=== PATIENT | female | born 1960 | race Caucasian/White ===

== ENCOUNTER → 2022-01-03 08:03 | Outpatient (CLI) | payer OTHER, SELFPAY ==
--- NOTE | ~2022-01-03 | CT_ITS ---
EXAMINATION: CT pelvis wo con DATE: 01/03/2022 08:32 INDICATION: Right lower quadrant abdominal pain. Incisional hernia. TECHNIQUE: Computed tomography (CT) of the pelvis was performed without intravenous contrast. Automat ed exposure control and iterative reconstruction technique were employed. The dose-length product was 599.71 mGy-cm. COMPARISON: None FINDINGS: There are no dilated loops of bowel. There is diverticulosis of the colon without evidence of diverticulitis. There are no pathologically enlarged lymph nodes. There is no free intraperitoneal fluid. There are chronic bilateral L5 pars defects. There is 5 mm anterolisthesis of L5 on S1. There is severe lower lumbar spondylosis. IMPRESSION: 1. No hernia. Reviewed, dictated and finalized at location A. IMPRESSION: 1. No hernia.
== END ==
PROVIDERS: PCP Internal Medicine; Visit Provider Surgery
DX: K43.2 Incisional hernia without obstruction or gangrene (principal)
CPT/HCPCS: 72192

== ENCOUNTER 2023-02-03 14:55 | Outpatient (CLI) | payer OTHER, SELFPAY ==
--- NOTE | ~2023-02-03 | CT_ITS ---
EXAMINATION:CT diagnostic chest w con DATE: 02/03/2023 15:23 INDICATION: Other nonspecific abnormal finding in lung field. Lung cancer. TECHNIQUE: Computed tomography (CT) of the chest was performed with 75 mL Omnipaque 350 intravenous c ontrast. Automated exposure control and iterative reconstruction technique were employed. The dose-le ngth product (DLP) was 500.98 mGy-cm. COMPARISON: Chest CT 12/21/2020 FINDINGS: There are changes of right upper lobectomy. There is mild emphysema. There is a 2 mm nodule in left upper lobe, likely benign. There is mild atelectasis bilaterally. No pleural effusion. The h eart size is normal. No pericardial effusion. There is mild thoracic spondylosis. IMPRESSION: 1. Right upper lobectomy. No specific evidence of metastatic disease. Reviewed, dictated and finalized at location E.
== END 2023-02-03 14:56 | disposition home or self-care (01) ==
LOC: ANHIMG 14:58
PROVIDERS: PCP Family Medicine; Visit Provider Family Medicine
DX: R91.8 Other nonspecific abnormal finding of lung field (principal)
CPT/HCPCS: 71260; Q9967

== ENCOUNTER 2023-03-27 14:45 | Outpatient (RCR) | payer OTHER, SELFPAY ==
--- NOTE | 2023-02-14 08:37 | PTOPEVAL1 ---
Assessment and note entered by Della Khan, PT Evaluation Information Assessment Status Evaluation Diagnosis right shoulder pain Therapy condition abnormal posture, weakness Onset ~3-4 months ago Subjective Information Days shoulder has hurt so bad can't lay on it. Reaching overhead is painful, can still do it but is painful. Working part-time, desk work on the computer. Improved her ergonimc alignment Has Tramadol for back once in a blue gong for back, and Meloxicam Reported Pain Level Pain Score 2: Self Report Assessment PT Clinical Summary Pt presents with complaints of right shoulder pain that has persisted multiple months. Pt note review imaging is unremarkable of right shoulder with only mild AC joint arthritic changes. Pt demo 's full ROM however reports discomfort and end ranges especially in internal rotation. Pt does demo weakness RUE > LUE as well as poor postures suggestive of RTC impingement with activity. Pt will benefit from physical therapy to address deficits and improve function without pain. Plan of Care Interventions Electrical Stimulation,Manual Therapy,Neuro Re- education,Patient/Caregiver Educati,Therapeutic Activities,Therapeutic Exercise,Self-Care/Home Management,Ultrasound PT Services Indicated Yes Treatment Frequency and 1-2x weekly x 6 weeks Duration These treatments will address the objective and functional deficits as defined above. The patient will be advanced safely and appropriately in order for the patient to progress towards his/her prior level of function. Additional exercises will be introduced and as well as a comprehensive home exercise program upon discharge, if needed, ?to ensure carryover of functional gains achieved in the clinic. This treatment plan has been reviewed and agreement upon by the patient.
--- NOTE | 2023-02-14 09:42 | OPREHPOC ---
Outpatient Therapy Plan of Care This is a Multidisciplinary Plan of Care that may contain components documented by all disciplines (PT, OT, and ST.) PT Problem 1 PT Problem #1 Knowledge Deficit PT Goal 1 Goal Pt will be independent in HEP Pt will verbalize understanding of diagnosis and prognosis Target Visit 8 PT Problem 2 PT Problem #2 Pain PT Goal 1 Goal Pt will report greatest pain level at 5/10 or less Target Visit 8 PT Goal 2 Goal Pt will report resolution of pain Target Visit 16 PT Problem 3 PT Problem #3 Impaired Strength PT Goal 1 Goal Pt will demo equal strength RUE and LUE in all tested planes PT Goal 2 Goal Pt will demo strength of 4+/5 in all tested planes
--- NOTE | 2023-03-27 15:33 | PTOPDC ---
Assessment and note entered by Della Khan, PT Assessment Status Discharge Diagnosis right shoulder pain Onset ~3-4 months ago Subjective Information Pt reports is sore today. 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 With laying on it, is about the same in which she can lay on the shoulder sometimes and sometimes is very painful. Reaching overhead is still painful and pulls Self perceived improvement: 10-15% has modified work space so is not leaning on her right shoulder any more. Is correcting her posture more. Reported Pain Level Pain Score 4: Self Report Assessment PT Clinical Summary Pt has attended 6 visits of therapy over the last seven weeks due to vacation and outside factors preventing more consistent scheduling. Pt reports she has modified her work station, is more conscious of her posture, and has been performing her home exercises. However she only reports 10-15 % improvement overall. She demo's appropriate ROM in all planes with pain at end-ranges, has made some gains in her RUE strength, but cont to demo poor postural alignment. Pt also has history of left shoulder spurrin that required surgical intervention. Pt will benefit from further imaging to rule out necessity of surgical intervention and/or possibly medicinal intervention. Will close therapy plan of care for now due to lack of progress.
== END 2023-03-28 09:59 | disposition home or self-care (01) ==
LOC: ANHHIPT 14:45
PROVIDERS: PCP Family Medicine; Visit Provider Family Medicine
DX: M25.511 Pain in right shoulder (principal)
CPT/HCPCS: 97014; 97110; 97112; 97140; 97161; 97164; 97750; G0283

== ENCOUNTER → 2023-04-26 10:30 | Outpatient (CLI) | payer OTHER, SELFPAY ==
--- NOTE | ~2023-04-26 | MR_ITS ---
EXAMINATION: MR shoulder RT wo con DATE: 04/26/2023 11:03 INDICATION: Right shoulder pain TECHNIQUE: Magnetic resonance imaging (MRI) of the right shoulder was performed without intravenous c ontrast. Sequences included axial PD-weighted FS FSE, coronal oblique PD-weighted FS FSE, coronal obl ique T2-weighted FS FSE, sagittal PD-weighted FS FSE, and sagittal T1-weighted SE. COMPARISON: Right shoulder radiographs dated 02/01/2023 FINDINGS: Coracoacromial arch: The acromion undersurface is curved in morphology (type II). Small anterior and lateral subacromial s purs at the acromial insertion of the normal coracoacromial ligament is normal. Moderate acromioclavi cular osteoarthritis with subarticular edema-like and cystlike changes and small marginal osteophytes at both sides of the joint space. Rotator cuff: Moderate supraspinatus and mild infraspinatus tendinopathy. Tiny articular sided split tear at the fo otplate of the conjoined portion of the supraspinatus and infraspinatus tendon measuring 1 mm AP, few millimeter in length along the axis of the tendon fibers and involving less than one half of the ten don thickness. This is best appreciated on sagittal series 7, image 6. The teres minor and subscapula ris tendons are normal. Normal rotator cuff muscle bulk and signal. Biceps tendon, glenoid labrum and glenohumeral cartilage: Long head of the biceps tendon is normal. There is amorphous increased signal consistent with degener ation of the posterosuperior to posterior glenoid labrum. Additional likely chronic degeneration of t he posterior inferior labrum which is diminutive consistent which has been partially replaced by smal l marginal osteophytes along the rim of the glenoid. There is partial thickness cartilage loss with s mooth chondral surface and without degenerative subchondral changes along the posterior aspect of the inferomedial humeral head. Fluid: Physiologic amount of fluid in the glenohumeral joint and biceps tendon sheath. No loose osteochondr al bodies. Small amount of fluid in the subacromial/subdeltoid bursa consistent with mild bursitis. Bones: Aside from at the acromioclavicular joint there is normal marrow signal. No fracture or pathologic ma rrow replacing process. IMPRESSION: 1. Moderate acromioclavicular osteoarthritis. 2. Moderate supraspinatus and infraspinatus tendinopathy with tiny partial-thickness bursal sided spl it tear at the distalmost aspect of the conjoined portion of the tendons. 3. Mild glenohumeral osteoarthritis with likely chronic degeneration of the posterior superior to pos terior inferior glenoid labrum. 4. Mild subacromial/subdeltoid bursitis. Reviewed, dictated and finalized at location A. ENGINE MECHANIC IMPRESSION: 1. Moderate acromioclavicular osteoarthritis. 2. Moderate supraspinatus and infraspinatus tendinopathy with tiny partial-thic kness bursal sided split tear at the distalmost aspect of the conjoined portion of the tendons. 3. Mild glenohumeral osteoarthritis with likely chronic degeneration of the pos terior superior to posterior inferior glenoid labrum. 4. Mild subacromial/subdeltoid bursitis.
== END ==
PROVIDERS: PCP Orthopaedic Surgery; Visit Provider Family Medicine
DX: M19.011 Primary osteoarthritis, right shoulder (principal); M75.51 Bursitis of right shoulder
CPT/HCPCS: 73221